=== PATIENT | male | born 1980 | race Caucasian/White ===

== ENCOUNTER 2019-12-20 00:13 | Inpatient (IN) | payer SELFPAY ==
[2019-12-20 00:37] LABS: #Basophils 0.1 thou/uL (0.0-0.2); #Eosinphils 0.1 thou/uL (0.0-0.7); #Lymphocytes 2.5 thou/uL (1.20-3.40); #Monocytes 0.9 thou/uL (0.11-0.59); #Neutrophils 7.4 thou/uL (1.40-6.50); %Basophils 1.1 % (0.0-1.0); %Eosinophils 0.6 % (0.0-10.0); %Lymphocytes 22.9 % (21.0-51.0); %Monocytes 7.8 % (0.0-10.0); %Neutrophils 67.5 % (42.0-75.0); Hemoglobin 15.3 g/dL (14.0-18.0); Mean Corpuscular HGB CONC 34.7 g/dL (32.0-36.0); Mean Corpuscular Hemoglobin 33.2 pg (27.0-31.0); Mean Corpuscular Volume 95.7 fL (78.0-98.0); Mean Platelet Volume 6.8 fL (7.4-10.4); Platelet Count 322 thou/uL (130-400); RBC Distribution Width 13.3 % (11.5-14.5); Red Blood Cell (RBC) Count 4.62 mill/uL (4.70-6.10)
[2019-12-20] MEDS ORDERED: Diazepam 5 MG TAB ONE ×4 (00:54→18:30)
[2019-12-20] MEDS ORDERED: Lorazepam 2 MG/ML VIAL ONE ×3 (00:54→03:48)
[2019-12-20 00:58] LABS: ALT (SGPT) 62 U/L (8-55); AST (SGOT) 97 U/L (5-34); Acetaminophen Less than 6.0 mcg/mL (10.0-30.0); Albumin 4.3 g/dL (3.5-5.0); Alcohol Less than 10 mg/dL (Less than 10); Alkaline Phosphatase 128 U/L (40-110); Anion Gap 33 mmol/L (10-20); BUN (Urea Nitrogen) 6 mg/dL (8.9-20.6); Bilirubin, Total 0.7 mg/dL (0.2-1.2); CK (CPK) 181 U/L (30-200); Calc. Creatinine Clearance 0 mL/min (70-130); Calcium 9.3 mg/dL (7.8-10.44); Carbon Dioxide 13 mmol/L (22-29); Chloride 93 mmol/L (98-107); Estimated GFR-MDRD 65; Globulin 3.3 g/dL (2.4-3.5); Glucose 248 mg/dL (70-105); Protein, Total 7.6 g/dL (6.0-8.3); Salicylate Less than 8.0 mg/dL (15.0-30.0); Sodium 136 mmol/L (136-145)
[2019-12-20 01:27] LABS: Bacteria/HPF None Seen HPF (None Seen); Bilirubin Negative (Negative); Blood, Urine 1+ (Negative); Clarity Clear (Clear); Glucose, Urine (Dipstick) 50 mg/dL (Negative); Leukocyte Negative Leu/uL (Negative); Nitrite Negative (Negative); Protein, Urine (Dipstick) 50 mg/dL (Neg-Trace); RBC/HPF 0-3 HPF (0-3); Squamous Epithelial None Seen HPF (0-3); Urobilinogen Normal mg/dL (Less than 2); WBC/HPF 0-3 HPF (0-3)
[2019-12-20 01:33] LABS: Amphetamine Not Detected (NotDetected); Barbiturates Screen Not Detected (NotDetected); Benzodiazepine Screen Not Detected (NotDetected); Cocaine Metabolite Screen Detected (NotDetected); Medtox Control Line Valid? VALID (VALID); Medtox Reader # READER 1; Methadone Not Detected (NotDetected); Methamphetamine Not Detected (NotDetected); Opiate Screen Not Detected (NotDetected); Oxycodone Screen Not Detected (NotDetected); Phencyclidine (PCP) Not Detected (NotDetected); THC/Cannabinoid Screen Not Detected (NotDetected); Tricyclic Screen Not Detected (NotDetected)
[2019-12-20] MEDS ORDERED: Potassium Bicarbonate/Cit Ac 25 MEQ TAB ONE ×2 (01:54)
[2019-12-20 03:18] LABS: Anion Gap 17 mmol/L (10-20); BUN (Urea Nitrogen) 5 mg/dL (8.9-20.6); Calc. Creatinine Clearance 0 mL/min (70-130); Calcium 7.8 mg/dL (7.8-10.44); Carbon Dioxide 22 mmol/L (22-29); Chloride 102 mmol/L (98-107); Estimated GFR-MDRD 90; Glucose 148 mg/dL (70-105); Potassium 3.9 mmol/L (3.5-5.1); Sodium 137 mmol/L (136-145)
[2019-12-20] MEDS ORDERED: Diazepam 5 MG TAB PO PRN ×2 (03:53→14:43)
[2019-12-20] MEDS ORDERED: Folic Acid 1 MG TAB PO SCH (03:53)
[2019-12-20] MEDS ORDERED: Magnesium Oxide 400 MG TAB PO SCH (03:53)
[2019-12-20] MEDS ORDERED: Thiamine 100 MG TAB PO SCH (03:53)
[2019-12-20] MEDS ORDERED: Multivitamin W/ Minerals 1 TAB PO SCH (03:53)
[2019-12-20] MEDS ORDERED: Lorazepam 2 MG/ML VIAL SLOW IVP PRN (04:34)
[2019-12-20] MEDS ORDERED: levETIRAcetam In NaCl (Iso-Os) 1,000 MG in Premix Bag 1 BAG IVPB SCH (04:35)
[2019-12-20] MEDS ORDERED: levETIRAcetam 1000 MG/100 ML PREMIX BAG ONE (04:58)
--- NOTE | 2019-12-20 07:27 | CT ---
PRELIMINARY REPORT/[facility]/EMERGENCY AFTER HOURS PROCEDURE: EXAM: CT Head Without Intravenous Contrast. CLINICAL HISTORY: [id number] presented to the ED with a c/o seizure witnessed by girlfriend just PATIENT SUPPORT REPRESENTATIVE. EMS denies hx of seizure s. Pt reports when it happened, he was stiff like a board, fell on girlfriend. Pt reports he took LSD tonight TECHNIQUE: Axial computed tomography images of the head/brain without intravenous contrast. COMPARISON: None provided. FINDINGS: BRAIN: No acute intraparenchymal hemorrhage. No mass lesion. No CT evidence for acute territorial inf arct. No midline shift or extra-axial collection. VENTRICLES: No hydrocephalus. ORBITS: The orbits are unremarkable. SINUSES AND MASTOIDS: The paranasal sinuses and mastoid air cells are clear. SOFT TISSUES: No significant facial or scalp soft tissue swelling evident. No radiopaque foreign body is seen. BONES: No acute skull fracture. IMPRESSION: No acute intracranial abnormality. ELECTRONICALLY SIGNED BY: Anil Ontiveros M.D. Dec 20, 2019 1:03:00 AM SALES SPECIAL AGENT This report is intended for review by the ordering physician only, in accordance of law. If you recei ve this report in error, please call [facility] at [phone]. FINAL REPORT EMERGENCY AFTER HOURS CT BRAIN WITHOUT CONTRAST: FINDINGS/IMPRESSION: I agree with the findings and impression given in the preliminary report per [facility] physici an. No evidence of acute intracranial abnormality.
[2019-12-20] MEDS ORDERED: levETIRAcetam 500 MG TAB PO SCH (09:00)
--- NOTE | 2019-12-20 09:36 | HP ---
PRIMARY CARE PHYSICIAN: The patient currently does not have a primary care physician. CHIEF COMPLAINT: "I had a seizure." HISTORY OF PRESENT ILLNESS: Mr. Edwards is a pleasant 39-year-old gentleman, who has no significant past medical history, who says that around 8:30 p.m. last night, he did some acid and then shortly after that his girlfriend noticed that he had started vomiting and he seemed to be clenching his jaws really tight. Then, he basically fell on to his girlfriend and prior to that he had made weird noise and he appeared stiff and to "have a seizure." The girlfriend called EMS and he was brought to the hospital for evaluation. In the ER, they did a CT scan of his head, which was essentially negative as well as some lab work. He is being placed in observation for possible seizure. Prior to this, he says he was feeling okay. He denied having any headaches or dizziness. No prior nausea. No vomiting. He did not have any aura-like symptoms such as visual changes or hearing any unusual noises or any unusual smells. He has never had any seizures before. He does admit to drinking fairly heavily. He can drink up to 750 mL of vodka a day, but he says he has never had any issues with alcohol withdrawal in the past. Other than what was mentioned in the history of present illness, the patient did not have any other significant symptoms. REVIEW OF SYSTEMS: All systems were reviewed and are negative except for that mentioned in the history of present illness. PAST MEDICAL HISTORY: He says that he is overweight, but no other significant chronic illnesses. PAST SURGICAL HISTORY: He has had a cholecystectomy and bilateral knee surgery and bariatric surgery. ALLERGIES: NO KNOWN DRUG ALLERGIES, BUT HE DOES HAVE "SEASONAL ALLERGIES." CURRENT MEDICATIONS: None. SOCIAL HISTORY: He is single. He has children. He has a girlfriend. He admits to smoking cigarettes up to a pack a day for about 3 years. He also admits to drinking usually vodka and he says "a handle in a day." He also admits to other illicit drugs including LSD, which he says he has only used "a few times" in the past. He says he does admit that he thinks he drinks too much and feels he needs to quit, but has never gone to any type of structured alcohol program. He denies having any issues such as DWIs, etc. FAMILY HISTORY: Significant for heart disease in his father and his mother had heart disease and a stroke. PHYSICAL EXAMINATION: GENERAL: He is alert and oriented. He appears to be in no acute distress. He is well developed and well nourished. VITAL SIGNS: Blood pressure was 162/92, heart rate 118, respiratory rate of 32, temperature is 98.9, and O2 saturation is 97% on room air. HEENT: His pupils are equal, round, and reactive. Extraocular muscles are intact. Sclerae are anicteric. Fundi; there was no hemorrhages, no palpable edema. His tympanic membranes are pearly gusman. There is no fluid behind the drums. Throat, there is no erythema. No exudates. Uvula is midline. NECK: No adenopathy. No bruits. LUNGS: Clear to auscultation. There are no wheezing, no rales, no rhonchi. CARDIOVASCULAR: He had a normal S1 and S2. I did not appreciate an S3 or S4. No murmurs, clicks, or rubs. ABDOMEN: Obese, soft, nontender, and nondistended. Positive for bowel sounds. No rebound or guarding. No gross organomegaly. EXTREMITIES: He did have trace edema bilaterally. No calf tenderness. No obvious joint effusions. NEUROLOGICAL: His cranial nerves are grossly intact. His muscle strength is also intact, 5/5 in both his upper and lower extremities and cerebellar function was essentially normal and there was no asterisks. SKIN AND INTEGUMENT: No significant skin findings, essentially negative. LABORATORY DATA: The white blood cell count is 11, hemoglobin 15.3, hematocrit is 44.2, and platelet count is 322. Sodium initially is 136, potassium 3.0, chloride is 93, CO2 is 13, BUN of 6, creatinine of 1.25, and glucose is 248. Urinalysis was essentially negative and the urine drug screen was positive for cocaine. He had a CT scan of the brain, which was negative for any acute intracranial abnormalities. ASSESSMENT AND PLAN: This is a pleasant 39-year-old gentleman, who presented to the emergency room after having a seizure. This is likely as a result of his drug use and could potentially be related to alcohol withdrawal. He will be placed in observation. He will be closely monitored for any further neurological compromise. We will place him on Ativan as needed primarily for seizure prophylaxis and Case Management consult for information regarding alcohol and drug rehab programs in the area. Job ID: [id number]
[2019-12-20] MEDS ORDERED: Diazepam 5 MG TAB PO SCH (14:45)
[2019-12-20] MEDS ORDERED: Thiamine HCl 200 MG/2 ML VIAL IM SCH (14:45)
[2019-12-20] MEDS ORDERED: cloNIDine 0.1 MG TAB ONE (19:11)
[2019-12-20 22:51] VITALS: BMI 31.4
[2019-12-21] MEDS: Sodium Chloride 0.9% 1,000 ML IV SCH ×2 (02:17→09:08)
[2019-12-21 04:40] LABS: #Eosinphils 0.1 thou/uL (0.0-0.7); #Lymphocytes 1.5 thou/uL (1.20-3.40); #Monocytes 0.4 thou/uL (0.11-0.59); #Neutrophils 3.3 thou/uL (1.40-6.50); %Basophils 0.2 % (0.0-1.0); %Eosinophils 1.1 % (0.0-10.0); %Lymphocytes 28.3 % (21.0-51.0); %Monocytes 7.4 % (0.0-10.0); Hemoglobin 13.4 g/dL (14.0-18.0); Mean Corpuscular HGB CONC 33.9 g/dL (32.0-36.0); Mean Corpuscular Hemoglobin 32.8 pg (27.0-31.0); Mean Corpuscular Volume 96.7 fL (78.0-98.0); Mean Platelet Volume 6.4 fL (7.4-10.4); Platelet Count 218 thou/uL (130-400); RBC Distribution Width 13.3 % (11.5-14.5); White Blood Cell (WBC) Count 5.2 thou/uL (4.8-10.8)
[2019-12-21 04:58] LABS: Anion Gap 13 mmol/L (10-20); BUN (Urea Nitrogen) 5 mg/dL (8.9-20.6); Calc. Creatinine Clearance 175 mL/min (70-130); Carbon Dioxide 27 mmol/L (22-29); Chloride 106 mmol/L (98-107); Estimated GFR-MDRD Greater than 90; Glucose 101 mg/dL (70-105); Sodium 143 mmol/L (136-145)
[2019-12-21 05:00] LABS: Potassium 2.9 mmol/L (3.5-5.1)
[2019-12-21] MEDS ORDERED: Potassium Chloride 40 MEQ in Sodium Chloride 0.9% 250 ML 250 ML IVPB SCH (05:45)
[2019-12-21] MEDS: cloNIDine 0.1 MG TAB PO PRN ×2 (07:59→12:02)
[2019-12-21] MEDS: Folic Acid 1 MG TAB PO SCH (09:05)
[2019-12-21] MEDS: Acetaminophen 325 MG TAB PO PRN ×2 (09:06→12:07)
[2019-12-21] MEDS: Thiamine 100 MG TAB PO SCH (09:06)
[2019-12-21] MEDS ORDERED: Potassium Chloride 20 MEQ TAB PO SCH ×2 (09:45→12:00)
[2019-12-21] MEDS ORDERED: Amlodipine 5 MG TAB PO SCH ×2 (12:45→20:00)
--- NOTE | 2019-12-21 19:51 | PDOC.HOSPP ---
- Subjective Encounter Date: 12/21/19 Encounter Time: 11:00 Subjective: The patient has no complaints today. Per girlfriend, patient used to wake up in the morning with mild tremors. Patient admitted for seizure. Never had one before. He dranks a gallon every three days. He drank one day prior to his seizure Patient hypertensive but no history of hypertension. He has not required prn ativan - Objective Vital Signs & Weight: Vital Signs (12 hours) Temp Pulse Resp BP BP Pulse Ox 12/21/19 16:05 158/100 H 12/21/19 15:38 97.9 F 93 16 158/100 H 100 12/21/19 12:47 171/101 H 12/21/19 12:02 171/101 H 12/21/19 12:01 171/101 H 12/21/19 11:10 99.7 F H 63 16 171/101 H 99 12/21/19 08:01 194/125 H 12/21/19 08:00 99.5 F 90 16 194/125 H 98 12/21/19 07:59 194/125 H Weight Weight 218 lb 14.4 oz I&O: 12/20/19 12/21/19 12/22/19 06:59 06:59 06:59 Intake Total 900 Balance 900 Result Diagrams: 12/21/19 04:26 12/21/19 04:26 Hospitalist ROS - Review of Systems Constitutional: denies: fever, chills Gastrointestinal: denies: nausea, vomiting, abdominal pain, diarrhea - Medication Medications: Active Medications Generic Name Dose Route Start Last Admin Trade Name Freq PRN Reason Stop Dose Admin Acetaminophen 650 mg 12/20/19 10:23 12/21/19 12:07 Tylenol PO 650 mg Q4H PRN Administration Headache/Fever/Mild Pain (1-3) Clonidine 0.1 mg 12/20/19 17:31 12/21/19 12:02 Catapres PO 0.1 mg Q4H PRN Administration SBP Greater Than 170 Folic Acid 1 mg 12/21/19 09:00 12/21/19 09:05 Folvite PO 1 mg DAILY HALEY Administration Sodium Chloride 1,000 mls @ 70 mls/hr 12/20/19 18:30 12/21/19 09:08 Normal Saline 0.9% IV Not Given .[id number] HALEY Thiamine HCl 100 mg 12/21/19 09:00 12/21/19 09:06 Thiamine PO 100 mg DAILY HALEY Administration - Exam General Appearance: NAD, awake alert Eye: PERRL, anicteric sclera ENT: normocephalic atraumatic, no oropharyngeal lesions Neck: supple, no JVD Heart: RRR, no murmur, no gallops, no rubs, normal peripheral pulses Respiratory: CTAB, no wheezes, no rales, no ronchi, normal chest expansion, no tachypnea, normal percussion Gastrointestinal: soft, non-tender, non-distended, normal bowel sounds Extremities: no clubbing, no edema Skin: normal turgor Neurological - other findings: No significant tremors noted on exam Musculoskeletal: normal tone, normal strength, no muscle wasting Psychiatric: normal behavior, A&O x 3, oriented to person Hosp A/P - Plan This is 39 year old male woh presented to Er with seizure from alcohol abuse #Alcohol abuse with withdrawal seizure #Cocaine intoxication - patient on [facility] protocol - patient should consider rehab, case management consult #Hypertensive urgency - possibly from cocaine vs alcohol withdrawal - given amlodipine 5 mg this am but diastolic still elevated. Ordered additional 5 mg, will increase to 10 mg tomorrow #Hypokalemia - potassium 2.9. - given 60 meq will recheck #Transaminitis - likely from alcoholism - will repeat tomorrow #Anemia - mild at 11. recheck tomorrow - check B12/folate/TSh DVT prophylaxis: SCDS Code status: full code
[2019-12-21 20:34] LABS: Potassium 4.4 mmol/L (3.5-5.1)
[2019-12-22] MEDS: Sodium Chloride 0.9% 1,000 ML IV SCH ×2 (03:40→14:37)
[2019-12-22] MEDS: cloNIDine 0.1 MG TAB PO PRN ×3 (03:40→17:03)
[2019-12-22 05:10] LABS: Hemoglobin 12.4 g/dL (14.0-18.0); Mean Corpuscular HGB CONC 32.8 g/dL (32.0-36.0); Mean Corpuscular Hemoglobin 31.7 pg (27.0-31.0); Mean Corpuscular Volume 96.9 fL (78.0-98.0); Mean Platelet Volume 6.9 fL (7.4-10.4); Platelet Count 197 thou/uL (130-400); RBC Distribution Width 13.2 % (11.5-14.5); White Blood Cell (WBC) Count 6.5 thou/uL (4.8-10.8)
[2019-12-22 05:29] LABS: ALT (SGPT) 33 U/L (8-55); AST (SGOT) 52 U/L (5-34); Albumin 3.2 g/dL (3.5-5.0); Alkaline Phosphatase 78 U/L (40-110); Anion Gap 10 mmol/L (10-20); BUN (Urea Nitrogen) 6 mg/dL (8.9-20.6); Bilirubin, Total 0.8 mg/dL (0.2-1.2); Calc. Creatinine Clearance 158 mL/min (70-130); Calcium 7.8 mg/dL (7.8-10.44); Carbon Dioxide 30 mmol/L (22-29); Chloride 104 mmol/L (98-107); Estimated GFR-MDRD Greater than 90; Globulin 2.5 g/dL (2.4-3.5); Glucose 111 mg/dL (70-105); Potassium 3.6 mmol/L (3.5-5.1); Protein, Total 5.7 g/dL (6.0-8.3); Sodium 140 mmol/L (136-145)
[2019-12-22] MEDS ORDERED: Amlodipine 5 MG TAB PO SCH (09:00)
[2019-12-22] MEDS: Amlodipine 5 MG TAB PO SCH (09:02)
[2019-12-22] MEDS: Acetaminophen 325 MG TAB PO PRN (09:02)
[2019-12-22] MEDS: Folic Acid 1 MG TAB PO SCH (09:02)
[2019-12-22] MEDS: Thiamine 100 MG TAB PO SCH (09:02)
[2019-12-22] MEDS ORDERED: Carvedilol 6.25 MG TAB PO SCH (14:30)
--- NOTE | 2019-12-22 16:15 | PDOC.HOSPP ---
- Subjective Encounter Date: 12/22/19 Encounter Time: 16:14 Subjective: THe patient's blood pressure still noted to be elevated. Patient asymptomatic with no headache, chest pain, shortness of breath. He usuallly drinks 4-5 beers daily. Last drink was on Patient is anxious to leave because he lives in [place]. He has no PCP to follow up his blood pressure. No hallucinations, restlesness or anxiety He is not interested in rehab currently. Patient denies cocaine use. He states his drink must have been laced with cocaine. - Objective Vital Signs & Weight: Vital Signs (12 hours) Temp Pulse Resp BP BP Pulse Ox 12/22/19 15:38 97.9 F 85 18 183/132 H 97 12/22/19 15:36 183/132 H 12/22/19 15:02 176/126 H 12/22/19 14:59 176/126 H 12/22/19 14:25 186/115 H 12/22/19 12:05 176/99 H 12/22/19 11:28 97.4 F L 99 18 176/99 H 99 12/22/19 11:18 176/99 H 12/22/19 09:02 168/111 H 12/22/19 08:01 168/111 H 12/22/19 07:28 98.1 F 82 16 168/111 H 98 Weight Weight 218 lb 14.4 oz I&O: 12/21/19 12/22/19 12/23/19 06:59 06:59 06:59 Intake Total 900 1050 Balance 900 1050 Result Diagrams: 12/22/19 04:53 12/22/19 04:53 Hospitalist ROS - Review of Systems Eyes: denies: pain Cardiovascular: denies: chest pain Gastrointestinal: denies: vomiting, hematochezia - Medication Medications: Active Medications Generic Name Dose Route Start Last Admin Trade Name Freq PRN Reason Stop Dose Admin Acetaminophen 650 mg 12/20/19 10:23 12/22/19 09:02 Tylenol PO 650 mg Q4H PRN Administration Headache/Fever/Mild Pain (1-3) Amlodipine Besylate 10 mg 12/22/19 09:00 12/22/19 09:02 Norvasc PO 10 mg DAILY HALEY Administration Carvedilol 12.5 mg 12/22/19 14:30 12/22/19 15:02 Coreg PO 12/22/19 16:30 12.5 mg NOW HALEY Administration Clonidine 0.1 mg 12/20/19 17:31 12/22/19 11:18 Catapres PO 0.1 mg Q4H PRN Administration SBP Greater Than 170 Folic Acid 1 mg 12/21/19 09:00 12/22/19 09:02 Folvite PO 1 mg DAILY HALEY Administration Sodium Chloride 10 ml 12/21/19 21:00 12/22/19 08:58 Flush - Normal Saline IVF Not Given Q12HR HALEY Thiamine HCl 100 mg 12/21/19 09:00 12/22/19 09:02 Thiamine PO 100 mg DAILY HALEY Administration - Exam General Appearance: NAD, awake alert Eye: PERRL, anicteric sclera ENT: normocephalic atraumatic, no oropharyngeal lesions Neck: supple, symmetric, no JVD, no thyromegaly Heart: RRR, no murmur, no gallops, no rubs Respiratory: CTAB, no wheezes, no rales Gastrointestinal: soft, non-tender, non-distended, normal bowel sounds Extremities: no cyanosis, no clubbing, no edema Skin: normal turgor, no lesions, no rashes Neurological: cranial nerve grossly intact, normal sensation to touch, no focal deficits Musculoskeletal: normal tone, normal strength, no muscle wasting Psychiatric: normal affect, normal behavior, A&O x 3, oriented to person Psychiatric - other findings: Has a stutter since he was a child. No tremors. Hosp A/P - Plan This is 39 year old male woh presented to Er with seizure from alcohol abuse #Alcohol abuse with withdrawal seizure #Cocaine intoxication - patient on [facility] protocol -continue thiamine/folic acid - pt wants to try to quit on his own #Hypertensive urgency - possibly from cocaine vs alcohol withdrawal -continue amlodipine 10 mg daily - start coreg 12.5 mg bid - clonidine prn #Transaminitis - improving - AST down to 52 #Anemia - mild at 11. recheck tomorrow - check B12/folate/TSh #Tobacco abuse - will order nicotine patch #Hypokalemia - resolved DVT prophylaxis: SCDS Code status: full code
[2019-12-22] MEDS: Nicotine 14 MG PATCH TD SCH (17:03)
[2019-12-23] MEDS: cloNIDine 0.1 MG TAB PO PRN (00:45)
[2019-12-23 05:04] LABS: Hemoglobin 13.4 g/dL (14.0-18.0); Mean Corpuscular HGB CONC 32.3 g/dL (32.0-36.0); Mean Corpuscular Hemoglobin 30.9 pg (27.0-31.0); Mean Corpuscular Volume 95.8 fL (78.0-98.0); Mean Platelet Volume 6.9 fL (7.4-10.4); Platelet Count 205 thou/uL (130-400); Red Blood Cell (RBC) Count 4.34 mill/uL (4.70-6.10)
[2019-12-23 05:31] LABS: ALT (SGPT) 32 U/L (8-55); AST (SGOT) 47 U/L (5-34); Albumin 3.6 g/dL (3.5-5.0); Alkaline Phosphatase 77 U/L (40-110); Bilirubin, Direct 0.5 mg/dL (0.1-0.3); Bilirubin, Total 1.1 mg/dL (0.2-1.2); Protein, Total 6.5 g/dL (6.0-8.3)
[2019-12-23 05:52] LABS: Thyroid Stimulating Hormone 3.1128 uIU/mL (0.35-4.94)
[2019-12-23] MEDS ORDERED: Carvedilol 6.25 MG TAB PO SCH (08:50)
[2019-12-23] MEDS ORDERED: Carvedilol 25 MG TAB PO SCH ×2 (09:00→17:00)
[2019-12-23] MEDS: Thiamine 100 MG TAB PO SCH (09:16)
[2019-12-23] MEDS: Folic Acid 1 MG TAB PO SCH (09:16)
[2019-12-23] MEDS: Amlodipine 5 MG TAB PO SCH (09:16)
[2019-12-23 12:14] VITALS: BP 137/89; TEMP 98.5
[2019-12-23] MEDS: Nicotine 14 MG PATCH TD SCH (16:28)
== END 2019-12-23 17:03 | disposition home or self-care (01) | DRG 897 ==
LOC: ERS 00:13 → OBSVTOIN 04:01 → ERHOLD 04:01 → 2SE 21:07
PROVIDERS: ADMIT Internal Medicine; ATTEND Internal Medicine
DX: F10.239 Alcohol dependence with withdrawal, unspecified (principal); F14.129 Cocaine abuse with intoxication, unspecified; I10 Essential (primary) hypertension; I16.0 Hypertensive urgency; R56.9 Unspecified convulsions; D64.9 Anemia, unspecified; F10.10 Alcohol abuse, uncomplicated; Y90.0 Blood alcohol level of less than 20 mg/100 ml; R40.2362 Coma scale, best motor response, obeys commands, at arrival to emergency department; R40.2142 Coma scale, eyes open, spontaneous, at arrival to emergency department; R40.2252 Coma scale, best verbal response, oriented, at arrival to emergency department; Z90.49 Acquired absence of other specified parts of digestive tract; Z98.84 Bariatric surgery status; Z98.890 Other specified postprocedural states; E87.6 Hypokalemia
CPT/HCPCS: 36415; 36416; 70450; 80048; 80053; 80076; 80306; 80307; 81003; 81015; 82550; 82607; 82746; 84443; 85025; 85027; 95816; 95819; 96361; 96365; 96372; 96375; 96376; J1953; J2060; J3480; J7050